=== PATIENT | female | born 1970 | race American Indian/Alaskan Native ===

== ENCOUNTER 2018-05-24 14:56 | Emergency (ER) | payer OTHER, MEDICAID ==
[2018-05-24 15:11] VITALS: BP 138/84
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
== END 2018-05-24 16:41 | disposition home or self-care (01) ==
LOC: ED 14:56
DX: Z04.1 Encounter for examination and observation following transport accident (principal); V59.3XXA Occupant (driver) (passenger) of pick-up truck or van injured in unspecified nontraffic accident, initial encounter; Y93.89 Activity, other specified; Y92.488 Other paved roadways as the place of occurrence of the external cause; Y99.8 Other external cause status
CPT/HCPCS: 99281